=== PATIENT | female | born 1995 | race Caucasian/White ===

== ENCOUNTER 2020-09-25 14:41 | Emergency (ER) | payer OTHER, SELFPAY ==
--- NOTE | 2020-09-25 14:51 | ED.URI ---
HPI - URI/Sore Throat General Chief Complaint: Upper Respiratory Infection Stated Complaint: sore throat Time Seen by Provider: 09/25/20 14:52 Source: patient and RN notes reviewed Mode of arrival: ambulatory Limitations: no limitations History of Present Illness HPI Narrative: 25 year old female who presents to [facility] care with complaints of sore throat, nasal drainage and congestion, dry cough, and some sweats for the past 4 days. Patient states that she has had no fevers or any chills. Patient denies any body aches, acute fatigue, no loss of taste or smell or any nausea and vomiting or diarrhea. Patient does report that she recently had a colonoscopy for colitis and was Covid tested on the 2nd with negative results, no known exposure to anyone with COVID symptoms. Patient is a student at [employer] and has been home since June and is doing classes online. Patient has no tachypnea or any accessory muscle use with her respirations with color pink and skin warm and dry, SAO2 97% on room air, states quit tobacco use 2 weeks ago. MD elicited complaint: cough (dry), sore throat, rhinorrhea and other Pertinent past history: other (former tobacco use quit 2 weeks ago) Onset (ago): day(s) (4) Consistency: constant Exacerbating factors: swallowing Relieving factors: nothing Associated symptoms: rhinorrhea, sore throat and cough Treatments prior to arrival: other (Nyquil) Related Data Home Medications Medication Instructions Recorded Confirmed Zofran 09/25/20 acyclovir 09/25/20 fluoxetine 09/25/20 hydrocodone-acetaminophen 09/25/20 meclizine 09/25/20 Allergies Allergy/AdvReac Type Severity Reaction Status Date / Time ciprofloxacin Allergy Unknown Verified 09/25/20 15:02 Review of Systems Review of Systems: Narrative: CONSTITUTIONAL: Denies fever, chills, reports sweats. EYES: Denies visual changes, redness, or discharge. ENT: Positive rhinorrhea, congestion, sore throat, no otalgia. CARDIOVASCULAR: Denies chest pain, palpitations, or edema. RESPIRATORY: Dry cough denies dyspnea. GASTROINTESTINAL: Denies abdominal pain, nausea, vomiting, or diarrhea. GENITOURINARY: Denies dysuria or hematuria. SKIN: Denies rash or itching. MUSCULOSKELETAL: Denies back pain, joint pain, or myalgia. NEUROLOGIC: Denies headache, numbness, or weakness. PSYCHIATRIC: Positive history of anxiety or depression. All systems reviewed & are unremarkable except as noted in HPI and below PMFSH Past Medical History Medical History (Updated 09/25/20 @ 15:24 by Ema Pennington NP) Anxiety and depression Colitis Hand injury Vertigo Surgical History Surgical History (Updated 09/25/20 @ 15:26 by Ema Pennington NP) Hx of colonoscopy Family History Family History (Updated 09/25/20 @ 15:30 by Ema Pennington NP) Other No significant family history Social History Social History (Updated 09/25/20 @ 15:25 by Ema Pennington NP) Smoking status: Former smoker Tobacco type: cigarettes Second hand tobacco smoke exposure: No Smoking end date: 09/11/20 Alcohol intake: unknown Substance use: unknown Living arrangements: with family Occupation/Education: student Gender identity (if verbalized by the patient): Female Comments At time of signature, agree with nursing past medical, surgical, social and family history. There is no relevant family history pertinent to the presenting complaint Exam Narrative: Exam Narrative: GENERAL: Well-appearing, well-nourished, and in no acute distress. HEAD: Normocephalic, atraumatic. EYES: PERRLA and EOMI. ENT: Nares red with turbinates swollen, clear rhinorrhea no epistaxis. Mucous membranes moist.TM s normal with good light reflex, throat red with uvula swollen, no lesions or exudates noted, no tonsil enlargement, post nasal drainage noted. NECK: Supple. no lymphadenopathy CHEST: Clear to auscultation. No respiratory distress.SAO2 97% on room air HEART: Regular rate
[2020-09-25 14:58] VITALS: BP 98/66; PULSE 84; RESP 12; TEMP 37; O2SAT 97
[2020-09-25 15:05] VITALS: BP 98/66; PULSE 84; RESP 12; TEMP 37; O2SAT 97
== END 2020-09-25 15:23 | disposition home or self-care (01) ==
PROVIDERS: Emergency Provider Registered Nurse
DX: J06.9 Acute upper respiratory infection, unspecified (principal); J02.8 Acute pharyngitis due to other specified organisms; Z87.891 Personal history of nicotine dependence
CPT/HCPCS: 87081; 87880; 99203; G0463

== ENCOUNTER 2020-10-21 11:29 | Emergency (ER) | payer OTHER, SELFPAY ==
--- NOTE | ~2020-10-21 | CT_ITS ---
EXAMINATION: CT abdomen pelvis w con DATE: 10/21/2020 14:05 INDICATION: Left lower quadrant abdominal pain. TECHNIQUE: Computed tomography (CT) of the abdomen and pelvis was performed with 100 mL Omnipaque 350 intravenous contrast. Automated exposure control and iterative reconstruction technique were employe d. The dose-length product was 241.66 mGy-cm. COMPARISON: None. FINDINGS: The visualized portions of the lung bases demonstrate minimal atelectasis. No pleural effus ion. The heart size is normal. No pericardial effusion. There is periportal edema in the liver. The g allbladder, spleen, pancreas, adrenal glands, and kidneys are normal. There is an intrauterine device in expected position. There are no dilated loops of bowel. The appendix is normal. There are no path ologically enlarged lymph nodes. There is trace pelvic ascites. The bones are unremarkable. IMPRESSION: 1. No specific etiology for the patient's symptoms. Reviewed, dictated and finalized at location A. GE ENTRY CLERK
--- NOTE | ~2020-10-21 | US_ITS ---
EXAMINATION: US pelvic complete w TV DATE: 10/21/2020 13:22 INDICATION: Left lower quadrant abdominal pain. TECHNIQUE: Multiple transabdominal and transvaginal sonographic images of the pelvis were obtained. COMPARISON: None. FINDINGS: TRANSABDOMINAL ULTRASOUND: The uterus measures 7.8 x 5.1 x 3.3 cm. There is no free fluid in the pelvis. TRANSVAGINAL ULTRASOUND: The endometrial complex measures 7 mm in thickness. There is an intrauterine device in expected posit ion. The right ovary measures 2.4 x 1.8 x 2.0 cm. The left ovary measures 2.9 x 2.4 x 2.3 cm. There i s a 1.8 cm dominant follicle in left ovary. There is normal vascular flow in the ovaries. IMPRESSION: 1. Intrauterine device in expected position. Reviewed, dictated and finalized at location A. MODEL MAKER
[2020-10-21 11:30] VITALS: BP 104/68; PULSE 94; RESP 20; TEMP 36.3; O2SAT 100
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
[2020-10-21 12:02] LABS: Basophils Percent Auto 0.7 % (0.2-1.2); Eosinophils Absolute Auto 0.1 K/mm3 (0-0.3); Eosinophils Percent Auto 0.9 % (0-4.4); Hemoglobin 12.5 g/dL (12.0-15.0); Immature Granulocyte Absolute 0.02 K/mm3 (0.00-0.031); Immature Granulocyte Percent A 0.3 % (0-0.5); Lymphocytes Absolute Auto 2.09 K/mm3 (0.9-3.2); Lymphocytes Percent Auto 36.4 % (18.3-44.2); Mean Corpuscular HGB Conc 33.8 g/dl (32-36); Mean Corpuscular Hemoglobin 30.2 pg (26-34); Mean Corpuscular Volume 89.4 fl (80-100); Mean Platelet Volume 9.6 fl (7.4-10.4); Monocytes Absolute Auto 0.5 K/mm3 (0.1-0.6); Monocytes Percent Auto 8.7 % (2.6-8.5); Platelet Count Result 299 k/mm3 (150-375); Red Blood Count 4.14 M/mm3 (4.2-5.4); Red Cell Distribution Width 12.3 % (11.5-14.5); White Blood Count 5.7 K/mm3 (4.5-10.0)
[2020-10-21] MEDS: ONDANSETRON INJ 4 MG/2 ML VIAL IV PUSH (12:09)
[2020-10-21] MEDS: SODIUM CHLORIDE 0.9% IV 1,000 ML 999 ML IV CONT (12:09)
[2020-10-21 12:13] LABS: Alanine Aminotransferase 18 U/L (4-35); Albumin Level 4.2 g/dL (3.5-5.1); Alkaline Phosphatase 96 U/L (38-126); Anion Gap 6 mmol/L (8-16); Aspartate Amino Transferase 31 U/L (14-36); Bilirubin,Total 0.3 mg/dL (0.2-1.3); Blood Urea Nitrogen 14 mg/dL (7-17); Carbon Dioxide 27 mmol/L (22-30); Chloride 106 mmol/L (98-107); Estimated CRCL calculation 113 ml/min; Estimated Glomerular Filt Rate > 60; Glucose 88 mg/dL (65-105); Lipase 47 U/L (23-300); Potassium 3.8 mmol/L (3.4-5.0); Sodium 139 mmol/L (137-145)
[2020-10-21 12:24] LABS: Add Urine Microscopic? YES; Appearance Urine Clear (Clear); Bilirubin Urine Negative (Negative); Blood Urine Negative (Negative); Color Urine Yellow (Yellow); Glucose Urine UA Negative (Negative); Ketones Urine Negative (Negative); Leukocyte Esterase Ur Negative LEU/UL (Negative); Mucus Urine Rare /lpf; Nitrate Urine Negative (Negative); Protein Urine 1+ mg/dL (Negative); Squamous Epithelial Cell Urine Few /hpf (Few); Urobilinogen Urine Negative mg/dL (<2.0); WBC Urine 0-3 /hpf
[2020-10-21 12:45] LABS: Amphetamine Screen Urine Negative (Negative); Barbiturate Screen Urine Negative (Negative); Benzodiazepines Screen Urine Negative (Negative); Cannabinoid Screen Urine Positive (Negative); Cocaine Screen Urine Negative (Negative); Methadone Screen Urine Negative (Negative); Opiate Screen Urine Negative (Negative); Phencyclidine Screen Urine Negative (Negative)
[2020-10-21] MEDS: MORPHINE SULFATE (*CRX) 4 MG/ML INJ IV PUSH (13:18)
[2020-10-21 13:49] VITALS: BP 112/79; PULSE 83; O2SAT 98
--- NOTE | 2020-10-21 13:50 | PC.NURSE ---
Patient reporting pain in right rib cage. breathing 24 times per minute. Requesting to take her home anxiety medication. MD barrettd
[2020-10-21] MEDS: KETOROLAC 30 MG/ML VIAL (*BKC) IV PUSH (15:05)
[2020-10-21 15:12] VITALS: BP 118/78; PULSE 78; RESP 16; O2SAT 10
== END 2020-10-21 15:18 | disposition home or self-care (01) ==
PROVIDERS: Physician Assistant; Emergency Provider Emergency Medicine
DX: R10.2 Pelvic and perineal pain (principal); F41.9 Anxiety disorder, unspecified; F32.9 Major depressive disorder, single episode, unspecified; Z87.891 Personal history of nicotine dependence; Z97.5 Presence of (intrauterine) contraceptive device; Z79.899 Other long term (current) drug therapy
CPT/HCPCS: 36415; 74177; 76830; 76856; 80053; 80307; 81001; 81025; 83690; 85025; 87070; 87491; 87591; 87808; 96365; 96375; 99284; J0131; J1885; J2270; J2405; J7030; Q9967

== ENCOUNTER 2020-11-01 11:35 | Emergency (ER) | payer OTHER, SELFPAY ==
[2020-11-01 11:55] VITALS: PULSE 81; RESP 20; TEMP 36.6; O2SAT 100
[2020-11-01 12:01] LABS: Basophils Percent Auto 0.5 % (0.2-1.2); Eosinophils Absolute Auto 0.1 K/mm3 (0-0.3); Eosinophils Percent Auto 2.2 % (0-4.4); Hematocrit 39.8 % (37.0-47.0); Hemoglobin 13.4 g/dL (12.0-15.0); Immature Granulocyte Absolute 0.02 K/mm3 (0.00-0.031); Immature Granulocyte Percent A 0.4 % (0-0.5); Lymphocytes Absolute Auto 2.36 K/mm3 (0.9-3.2); Lymphocytes Percent Auto 42.5 % (18.3-44.2); Mean Corpuscular HGB Conc 33.7 g/dl (32-36); Mean Corpuscular Hemoglobin 30.2 pg (26-34); Mean Corpuscular Volume 89.8 fl (80-100); Mean Platelet Volume 9.3 fl (7.4-10.4); Monocytes Absolute Auto 0.5 K/mm3 (0.1-0.6); Monocytes Percent Auto 9.7 % (2.6-8.5); Neutrophils Absolute Auto 2.5 K/mm3 (1.3-6.7); Neutrophils Percent Auto 44.7 % (45.5-73.1); Platelet Count Result 342 k/mm3 (150-375); Red Blood Count 4.43 M/mm3 (4.2-5.4); Red Cell Distribution Width 12.5 % (11.5-14.5); White Blood Count 5.6 K/mm3 (4.5-10.0)
--- NOTE | 2020-11-01 12:05 | PC.NURSE ---
patient here with continuous N/V since this am. hx of GI workup. hx of IBS. only takes zofran PRN at home. see initial notes. labs drawn by chief ultrasound technologist. SL inserted. waiting for further orders from provider. resting on stretcher. call light in reach. on BP and O2 monitors.
[2020-11-01 12:06] LABS: Add Urine Microscopic? YES; Appearance Urine Clear (Clear); Bacteria Urine Trace /hpf; Bilirubin Urine Negative (Negative); Blood Urine Negative (Negative); Color Urine Yellow (Yellow); Glucose Urine UA Negative (Negative); Ketones Urine Negative (Negative); Leukocyte Esterase Ur Negative LEU/UL (Negative); Mucus Urine Rare /lpf; Nitrate Urine Negative (Negative); Protein Urine 1+ mg/dL (Negative); Squamous Epithelial Cell Urine Many /hpf (Few); Urobilinogen Urine Negative mg/dL (<2.0); WBC Urine 0-3 /hpf
[2020-11-01 12:12] LABS: Alanine Aminotransferase 15 U/L (4-35); Albumin Level 4.4 g/dL (3.5-5.1); Alkaline Phosphatase 106 U/L (38-126); Anion Gap 7 mmol/L (8-16); Aspartate Amino Transferase 23 U/L (14-36); Bilirubin,Total 0.3 mg/dL (0.2-1.3); Blood Urea Nitrogen 14 mg/dL (7-17); Calcium 8.4 mg/dL (8.4-10.2); Carbon Dioxide 29 mmol/L (22-30); Chloride 105 mmol/L (98-107); Estimated Glomerular Filt Rate > 60; Glucose 93 mg/dL (65-105); Lipase 51 U/L (23-300); Potassium 4.2 mmol/L (3.4-5.0); Sodium 141 mmol/L (137-145)
[2020-11-01] MEDS: ONDANSETRON INJ 4 MG/2 ML VIAL IV PUSH (12:40)
[2020-11-01] MEDS: SODIUM CHLORIDE 0.9% IV 1,000 ML 999 ML IV CONT (12:40)
--- NOTE | 2020-11-01 13:57 | PC.NURSE ---
patient states she is still nauseous but no further emesis. all labs resulted. IVF done. will discuss with provider.
--- NOTE | 2020-11-01 14:45 | PC.NURSE ---
meds given as ordered. resting on stretcher. patient states she is going to get a new GI physician in this area. no longer living out of [place] for school. states work up was negative a few months ago.
[2020-11-01] MEDS: MORPHINE SULFATE (*CRX) 2 MG/ML INJ IV PUSH (15:09)
[2020-11-01] MEDS: PROMETHAZINE HCL 25 MG/ML AMPUL 12.5 MG IV PUSH (15:09)
[2020-11-01 15:10] VITALS: BP 111/70; PULSE 80; RESP 18; O2SAT 100
--- NOTE | 2020-11-01 15:49 | ED.GENADULT ---
HPI - General Adult General Chief complaint: Abdominal Pain Stated complaint: n/v, abd crampming Time Seen by Provider: 11/01/20 11:41 History of Present Illness HPI narrative: Patient is a 25-year-old female who presents ER with nausea and vomiting. Sudden onset this morning upon waking up. Unknown quantity of emesis. No blood. No improvement with Zofran at home. Denies fevers or chills or sweats. Has had issues like this previously and now sees a GI physician at another hospital. She reports she has had a endoscopy and colonoscopy without significant findings. Denies any precipitating factors that could have caused her symptoms. Has not been drinking alcohol. Denies any sick contacts other than a cousin who is on amoxicillin for an unknown reason. Related Data Home Medications Medication Instructions Recorded Confirmed Zofran 09/25/20 acyclovir 09/25/20 fluoxetine 09/25/20 hydrocodone-acetaminophen 09/25/20 meclizine 09/25/20 Allergies Allergy/AdvReac Type Severity Reaction Status Date / Time ciprofloxacin Allergy Unknown Verified 09/25/20 15:02 dicyclomine Allergy Unknown Verified 10/21/20 11:33 Review of Systems Review of Systems: All systems reviewed & are unremarkable except as noted in HPI and below Constitutional: Constitutional: Denies chills, Denies fever(s) and Denies weakness ENT: Denies nasal congestion and Denies sore throat Cardiovascular: Cardiovascular: Denies chest pain, Denies rapid heart rate and Denies radiating jaw, neck or arm pain Respiratory: Respiratory: Denies cough and Denies dyspnea Gastrointestinal: Gastrointestinal: Reports abdominal pain, Denies diarrhea, Reports nausea and Reports vomiting [facility] Past Medical History Medical History (Updated 11/01/20 @ 15:52 by Nitin Davison MD) Anxiety and depression Colitis Hand injury Vertigo Surgical History Surgical History (Updated 09/25/20 @ 15:26 by Ema Pennington NP) Hx of colonoscopy Family History Family History (Updated 09/25/20 @ 15:30 by Ema Pennington NP) Other No significant family history Social History Social History (Updated 10/21/20 @ 14:58 by Destiny Chaves PA-C) Smoking status: Former smoker Tobacco type: cigarettes Second hand tobacco smoke exposure: No Smoking end date: 09/11/20 Alcohol intake: current Substance use: current Substance use type: marijuana Gender identity (if verbalized by the patient): Female Exam Narrative: Exam Narrative: GENERAL: Well-appearing, well-nourished, and in no acute distress. HEAD: Normocephalic, atraumatic. CHEST: Clear to auscultation. No respiratory distress. HEART: Regular rate and rhythm. Normal peripheral pulses. ABDOMEN: Soft, nontender, nondistended. EXTREMITIES: Normal range of motion. No edema. NEURO: Alert and oriented x3. PSYCH: Normal mood and affect. Course Course Emergency Course: Patient appears much more comfortable. No emesis. She has received antiemetics. Lab work quite unremarkable. Abdomen soft nontender. No indication for CT scan. Discharge home with follow-up with PCP. Vital Signs Vital signs: Vital Signs Temperature 97.9 F 11/01/20 11:55 Pulse Rate 81 11/01/20 11:55 Respiratory Rate 20 11/01/20 11:55 Pulse Oximetry 100 11/01/20 11:55 Temperature 97.9 F 11/01/20 11:55 Pulse Rate 80 11/01/20 15:10 Respiratory Rate 18 11/01/20 15:10 Blood Pressure 111/70 11/01/20 15:10 Pulse Oximetry 100 11/01/20 15:10 Medical Decision Making Vital Signs Vital Signs: Vital Signs Temperature 97.9 F 11/01/20 11:55 Pulse Rate 81 11/01/20 11:55 Respiratory Rate 20 11/01/20 11:55 Pulse Oximetry 100 11/01/20 11:55 Temperature 97.9 F 11/01/20 11:55 Pulse Rate 80 11/01/20 15:10 Respiratory Rate 18 11/01/20 15:10 Blood Pressure 111/70 11/01/20 15:10 Pulse Oximetry 100 11/01/20 15:10 Lab Data Result diagrams: 11/01/20 1
== END 2020-11-01 16:00 | disposition home or self-care (01) ==
PROVIDERS: Emergency Provider Emergency Medicine
DX: R11.2 Nausea with vomiting, unspecified (principal); F41.9 Anxiety disorder, unspecified; F32.9 Major depressive disorder, single episode, unspecified
CPT/HCPCS: 36415; 80053; 81001; 81025; 83690; 85025; 96361; 96374; 96375; 99284; J2270; J2405; J2550; J7030

== ENCOUNTER 2020-11-07 11:53 | Emergency (ER) | payer OTHER, SELFPAY ==
--- NOTE | 2020-11-07 11:56 | ED.URI ---
HPI - URI/Sore Throat General Chief Complaint: Upper Respiratory Infection Stated Complaint: LOSING VOICE Time Seen by Provider: 11/07/20 11:57 Source: patient and RN notes reviewed History of Present Illness HPI Narrative: Patient is a 25-year-old female who presents the urgent care with complaints of a sore that started last night. Patient states that she woke up this morning and now has a lump on the right side of her neck . Patient denies of any known exposure to strep or flu. Denies of any fever, chills, nausea, vomiting, cough. Denies of taking anything [id number] for her symptoms. No other acute complaints. No acute distress noted. Patient aware of the plan of care. Some parts of this dictation were generated by voice recognition software and may contain typographical and/or grammatical inaccuracies. Related Data Home Medications Medication Instructions Recorded Confirmed Zofran 09/25/20 acyclovir 09/25/20 fluoxetine 09/25/20 hydrocodone-acetaminophen 09/25/20 meclizine 09/25/20 Allergies Allergy/AdvReac Type Severity Reaction Status Date / Time ciprofloxacin Allergy Unknown Verified 09/25/20 15:02 dicyclomine Allergy Unknown Verified 10/21/20 11:33 Review of Systems Review of Systems: Narrative: CONSTITUTIONAL: Denies fever, chills, or sweats. EYES: Denies visual changes, redness, or discharge. ENT: Reports of sore throat and swelling gland CARDIOVASCULAR: Denies chest pain, palpitations, or edema. RESPIRATORY: Denies cough or dyspnea. GASTROINTESTINAL: Denies abdominal pain, nausea, vomiting, or diarrhea. GENITOURINARY: Denies dysuria or hematuria. SKIN: Denies rash or itching. MUSCULOSKELETAL: Denies back pain, joint pain, or myalgia. NEUROLOGIC: Denies headache, numbness, or weakness. All other systems reviewed are negative, except as documented in HPI. [facility] Past Medical History Medical History (Updated 11/07/20 @ 12:13 by IBETH Stevenson) Anxiety and depression Colitis Hand injury Vertigo Surgical History Surgical History (Updated 09/25/20 @ 15:26 by Ema Pennington NP) Hx of colonoscopy Family History Family History (Updated 09/25/20 @ 15:30 by Ema Pennington NP) Other No significant family history Social History Social History (Updated 10/21/20 @ 14:58 by Destiny Chaves PA-C) Smoking status: Former smoker Tobacco type: cigarettes Second hand tobacco smoke exposure: No Smoking end date: 09/11/20 Alcohol intake: current Substance use: current Substance use type: marijuana Gender identity (if verbalized by the patient): Female Comments At the time of my signature, I reviewed and agree with the nursing past medical, surgical, social, and family history. There is no relevant family history pertinent to the patient complaint. Exam Narrative: Exam Narrative: GENERAL: This is a well-nourished, well-developed patient, in no apparent distress. HEAD: normocephalic, atraumatic. EYES: PERRL. Sclera clear/white. Vision is grossly intact. EARS: External ears normal, auditory canals clear and without drainage, TMs normal without perforation. Hearing grossly intact. NOSE: External nose normal with no obvious nasal discharge, nares without redness, no rhinorrhea. THROAT: Mucous membranes moist, posterior pharynx clear. Mild postnasal drainage NECK: Neck supple, very mild nontender right submandibular lymphadenopathy CARDIOVASCULAR: Regular rate and rhythm without murmurs, gallops, or rubs. RESPIRATORY: Clear to auscultation. Breath sounds equal bilaterally. No wheezes, rales, or rhonchi. SKIN: warm, intact with no suspicious lesions or rash, good texture and turgor. NEURO: awake, alert, and oriented to person, place and time. There were no obvious focal neurologic abnormalities. EXTREMITIES: No clubbing, cyanosis, or edema. Course Vital Signs Vital signs: Vital Signs Temperature 98.2 F 11/07/20 12:10 Pulse Rate 92
[2020-11-07 12:10] VITALS: BP 104/51; PULSE 92; RESP 16; TEMP 36.8; O2SAT 100
== END 2020-11-07 12:19 | disposition home or self-care (01) ==
PROVIDERS: Emergency Provider Nurse Practitioner Family
DX: J02.9 Acute pharyngitis, unspecified (principal); F41.9 Anxiety disorder, unspecified; F32.9 Major depressive disorder, single episode, unspecified
CPT/HCPCS: 87081; 87880; 99213; G0463

== ENCOUNTER 2020-11-09 12:32 | Emergency (ER) | payer OTHER, SELFPAY ==
--- NOTE | 2020-11-09 12:34 | ED.URI ---
HPI - URI/Sore Throat General Chief Complaint: Upper Respiratory Infection Stated Complaint: SORE THROAT Time Seen by Provider: 11/09/20 12:46 Source: patient and RN notes reviewed Mode of arrival: ambulatory Limitations: no limitations History of Present Illness HPI Narrative: 25-year-old female presents with concern for 4 to 5-day history of postnasal drainage, rhinorrhea, cough, sore throat, reports she has lost her voice. Reports she had a negative strep test 2 days ago. Reports she has been taking DayQuil and NyQuil. Denies any known sick contacts. Denies body aches, chills, sweats, fever, shortness of breath, loss of sense of taste and smell. MD elicited complaint: sore throat Related Data Home Medications Medication Instructions Recorded Confirmed Zofran 4 mg PO PRN PRN 09/25/20 11/09/20 acyclovir 200 mg PO DAILY 09/25/20 11/09/20 fluoxetine 10 mg PO DAILY 09/25/20 11/09/20 meclizine 12 mg PO PRN PRN 09/25/20 11/09/20 Adult Probiotic 1 tab-cap PO BID 11/09/20 11/09/20 famotidine [Pepcid] 40 mg PO BID 11/09/20 11/09/20 Allergies Allergy/AdvReac Type Severity Reaction Status Date / Time ciprofloxacin Allergy Unknown Verified 11/09/20 12:44 dicyclomine Allergy Unknown Verified 11/09/20 12:44 Review of Systems Review of Systems: Narrative: CONSTITUTIONAL: Denies malaise, chills, sweats, or fever. EYES: Denies visual changes, redness, or discharge. ENT: Reports rhinorrhea, congestion, and sore throat. Denies sinus pain and ear pain CARDIOVASCULAR: Denies chest pain, palpitations, or edema. RESPIRATORY: Reports cough. Denies dyspnea. GASTROINTESTINAL: Denies abdominal pain, nausea, vomiting, diarrhea SKIN: Denies rash or itching. MUSCULOSKELETAL: Denies myalgia. NEUROLOGIC: Denies headache. All systems reviewed & are unremarkable except as noted in HPI and below PMFSH Past Medical History Medical History (Updated 11/09/20 @ 12:50 by Laila Sagastume NP) Anxiety and depression Colitis Hand injury Vertigo Surgical History Surgical History (Updated 09/25/20 @ 15:26 by Ema Pennington NP) Hx of colonoscopy Family History Family History (Updated 09/25/20 @ 15:30 by Ema Pennington NP) Other No significant family history Social History Social History (Updated 10/21/20 @ 14:58 by Destiny Chaves PA-C) Smoking status: Former smoker Tobacco type: cigarettes Second hand tobacco smoke exposure: No Smoking end date: 09/11/20 Alcohol intake: current Substance use: current Substance use type: marijuana Gender identity (if verbalized by the patient): Female Comments At time of signature, agree with nursing past medical, surgical, social and family history. There is no relevant family history pertinent to the presenting complaint Exam Narrative: Exam Narrative: GENERAL: Well-appearing, well-nourished, and in no acute distress. HEAD: Normocephalic EYES: PERRLA, conjunctivae clear ENT: Nares clear, turbinates erythematous, clear discharge. Mucous membranes moist. TM pearly mercedes with dull light reflex bilaterally; no tragal tenderness. Oropharynx erythematous without lesions. Tonsils not enlarged and without exudate, no drooling, slightly hoarse voice, no trismus, uvula midline. NECK: Supple. No lymphadenopathy CHEST: Clear to auscultation, breath sounds equal. No wheezing, rhonchi, rales, or stridor. No respiratory distress, speaks in full sentences. HEART: Regular rate and rhythm. No murmur heard. SKIN: Warm, dry, no rash. NEURO: Alert and oriented x3. PSYCH: Normal mood and affect Course Course Emergency Course: Patient is aware of diagnosis, understands and agrees to treatment plan. Anticipatory guidance given. Patient agrees to follow-up as directed and is aware of reasons to seek care at the emergency department. Portions of this record may have been created with voice recognition software Vital Signs Vital signs: Vital Signs Temperature 98.2 F 11/09/20 12:41 Pul
[2020-11-09 12:41] VITALS: BP 115/78; PULSE 82; RESP 16; TEMP 36.8; O2SAT 100
== END 2020-11-09 13:12 | disposition home or self-care (01) ==
PROVIDERS: Emergency Provider Nurse Practitioner
DX: J40 Bronchitis, not specified as acute or chronic (principal); Z20.822 Contact with and (suspected) exposure to COVID-19; Z87.891 Personal history of nicotine dependence; F41.9 Anxiety disorder, unspecified; F32.9 Major depressive disorder, single episode, unspecified
CPT/HCPCS: 87426; 99213; C9803; G0463

== ENCOUNTER 2021-01-25 10:27 | Emergency (ER) | payer OTHER, SELFPAY ==
--- NOTE | 2021-01-25 10:35 | ED.URI ---
HPI - URI/Sore Throat General Chief Complaint: Upper Respiratory Infection Stated Complaint: upper respiratory infection Time Seen by Provider: 01/25/21 10:40 Source: patient and RN notes reviewed Mode of arrival: ambulatory Limitations: no limitations History of Present Illness HPI Narrative: 25-year-old female presents with concern for nasal congestion, rhinorrhea, low-grade fever, one episode of vomiting, hot flashes, trouble sleeping, occasional cough. Reports symptoms started 3 days ago. She reports she has been taking Benadryl and Claritin with no relief. Denies trouble breathing, loss of sense of taste or smell, sore throat. 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 She has not been vaccinated for Covid. MD elicited complaint: cough Related Data Home Medications Medication Instructions Recorded Confirmed acyclovir 200 mg PO DAILY 09/25/20 11/09/20 fluoxetine 10 mg PO DAILY 09/25/20 11/09/20 meclizine 12 mg PO PRN PRN 09/25/20 11/09/20 Adult Probiotic 1 tab-cap PO BID 11/09/20 11/09/20 Allergies Allergy/AdvReac Type Severity Reaction Status Date / Time ciprofloxacin Allergy Unknown Verified 11/09/20 12:44 dicyclomine Allergy Unknown Verified 11/09/20 12:44 Review of Systems Review of Systems: Narrative: CONSTITUTIONAL: Denies malaise, chills. Reports sweats, fever. EYES: Denies visual changes, redness, or discharge. ENT: Reports rhinorrhea, congestion. Denies sinus pain, otalgia and sore throat. CARDIOVASCULAR: Denies chest pain, palpitations, or edema. RESPIRATORY: Reports cough. Denies dyspnea. GASTROINTESTINAL: Denies abdominal pain, diarrhea. Reports nausea mild SKIN: Denies rash or itching. MUSCULOSKELETAL: Denies myalgia. NEUROLOGIC: Denies headache. All systems reviewed & are unremarkable except as noted in HPI and below PMFSH Past Medical History Medical History (Updated 01/25/21 @ 10:55 by Laila Sagastume NP) Anxiety and depression Colitis Hand injury Vertigo Surgical History Surgical History (Updated 09/25/20 @ 15:26 by Ema Pennington NP) Hx of colonoscopy Family History Family History (Updated 09/25/20 @ 15:30 by Ema Pennington NP) Other No significant family history Social History Social History (Updated 10/21/20 @ 14:58 by Destiny Chaves PA-C) Smoking status: Former smoker Tobacco type: cigarettes Second hand tobacco smoke exposure: No Smoking end date: 09/11/20 Alcohol intake: current Substance use: current Substance use type: marijuana Gender identity (if verbalized by the patient): Female Comments At time of signature, agree with nursing past medical, surgical, social and family history. There is no relevant family history pertinent to the presenting complaint Exam Narrative: Exam Narrative: GENERAL: Well-appearing, well-nourished, and in no acute distress. HEAD: Normocephalic EYES: PERRLA, conjunctivae clear ENT: Nares clear, turbinates edematous and erythematous, clear discharge. Mucous membranes moist. TM pearly mercedes with sharp light reflex bilaterally; no tragal tenderness. Oropharynx not erythematous without lesions. Tonsils not enlarged and without exudate, no drooling, no hoarseness, no trismus, uvula midline. NECK: Supple. No lymphadenopathy CHEST: Clear to auscultation, breath sounds equal. No wheezing, rhonchi, rales, or stridor. No respiratory distress, speaks in full sentences. HEART: Regular rate and rhythm. No murmur heard. SKIN: Warm, dry, no rash. NEURO: Alert and oriented x3. PSYCH: Normal mood and affect Course Course Emergency Course: Patient is aware of diagnosis, understands and agrees to treatment plan. Anticipatory guidance given. Patient agrees to follow-up as directed and is aware of reasons to seek care at the emergency department. Portions of this record may have been created with voice recognition software Vital Signs Vital signs: Vital Signs Temperature 98.2 F 01/25/21 10:39 Pulse Rate 88 01/25/21 10
[2021-01-25 10:39] VITALS: BP 112/72; PULSE 88; RESP 16; TEMP 36.8; O2SAT 100
== END 2021-01-25 11:05 | disposition home or self-care (01) ==
PROVIDERS: Emergency Provider Nurse Practitioner
DX: U07.1 COVID-19 (principal); Z87.891 Personal history of nicotine dependence; F41.9 Anxiety disorder, unspecified; F32.9 Major depressive disorder, single episode, unspecified
CPT/HCPCS: 87426; 99213; C9803; G0463

== ENCOUNTER 2021-02-18 22:03 | Emergency (ER) | payer OTHER, SELFPAY ==
--- NOTE | ~2021-02-18 | CT_ITS ---
EXAMINATION: CT abdomen pelvis w con EXAM DATE: 02/19/2021 02:12 INDICATION: Right lower quadrant pain, Nausea. TECHNIQUE: Spiral CT of the abdomen and pelvis was performed following intravenous injection of 100 m L Omnipaque 350. Axial, coronal and sagittal images of the abdomen and pelvis were reviewed. The do se-length product (DLP) for this examination was 279.33 mGy-cm. The exposure was tailored according to patient size (auto mA exposure control), and iterative reconstruction (ASIR) was used as additiona l dose reduction technique. Comparison is made to prior examination from 10/21/2020. FINDINGS: The liver, spleen, adrenal glands and pancreas are unremarkable. Gallbladder is unremarkab le. No biliary obstruction. Portal and splenic veins are patent. Kidneys enhance symmetrically. T here is no hydronephrosis. There is IUD which appears to be centrally located within the endometriu m, expected position. Small amount of free pelvic fluid from recently ruptured right ovarian cyst. Se veral cystic regions in the left ovary, which measures up to 4.8 cm. The bladder is unremarkable. T here is no retroperitoneal or pelvic lymphadenopathy. The appendix is normal. The stomach and small bowel are unremarkable. There is expected amount of c olonic stool. No free intraperitoneal gas. The heart is normal in size. There are no pericardial or pleural effusions. The lung bases are unremarkable. Mild lumbar levoscoliosis. IMPRESSION: Evidence of recently ruptured right ovarian cyst. Left ovarian cystic lesion probably hem orrhagic cyst but endometrioma not excludable. Consider follow-up pelvic sonogram if symptoms persist . Reviewed, dictated and finalized at location A. IMPRESSION: Evidence of recently ruptured right ovarian cyst. Left ovarian cyst ic lesion probably hemorrhagic cyst but endometrioma not excludable. Consider f ollow-up pelvic sonogram if symptoms persist.
[2021-02-18 22:25] VITALS: BP 119/85; PULSE 85; RESP 17; TEMP 36.2; O2SAT 100
[2021-02-18 22:44] LABS: Basophils Percent Auto 0.5 % (0.2-1.2); Eosinophils Absolute Auto 0.1 K/mm3 (0-0.3); Eosinophils Percent Auto 1.1 % (0-4.4); Hematocrit 39.6 % (37.0-47.0); Hemoglobin 13.2 g/dL (12.0-15.0); Immature Granulocyte Absolute 0.02 K/mm3 (0.00-0.031); Immature Granulocyte Percent A 0.2 % (0-0.5); Lymphocytes Absolute Auto 2.43 K/mm3 (0.9-3.2); Lymphocytes Percent Auto 29.7 % (18.3-44.2); Mean Corpuscular HGB Conc 33.3 g/dl (32-36); Mean Corpuscular Hemoglobin 29.6 pg (26-34); Mean Corpuscular Volume 88.8 fl (80-100); Mean Platelet Volume 9.7 fl (7.4-10.4); Monocytes Absolute Auto 0.7 K/mm3 (0.1-0.6); Monocytes Percent Auto 7.9 % (2.6-8.5); Neutrophils Percent Auto 60.6 % (45.5-73.1); Platelet Count Result 292 k/mm3 (150-375); Red Blood Count 4.46 M/mm3 (4.2-5.4); Red Cell Distribution Width 12.2 % (11.5-14.5); White Blood Count 8.2 K/mm3 (4.5-10.0)
[2021-02-18 22:45] LABS: Alanine Aminotransferase 15 U/L (4-35); Albumin Level 4.6 g/dL (3.5-5.1); Alkaline Phosphatase 109 U/L (38-126); Anion Gap 12 mmol/L (8-16); Aspartate Amino Transferase 27 U/L (14-36); Bilirubin,Total 0.2 mg/dL (0.2-1.3); Blood Urea Nitrogen 10 mg/dL (7-17); Calcium 9.5 mg/dL (8.4-10.2); Carbon Dioxide 26 mmol/L (22-30); Chloride 102 mmol/L (98-107); Estimated CRCL calculation 121 ml/min; Estimated Glomerular Filt Rate > 60; Glucose 99 mg/dL (65-105); Lipase 48 U/L (23-300); Potassium 3.6 mmol/L (3.4-5.0); Sodium 140 mmol/L (137-145)
[2021-02-18 22:46] LABS: Add Urine Microscopic? NO; Appearance Urine Clear (Clear); Bilirubin Urine Negative (Negative); Blood Urine Negative (Negative); Color Urine Straw (Yellow); Glucose Urine UA Negative (Negative); Ketones Urine Negative (Negative); Leukocyte Esterase Ur Negative LEU/UL (Negative); Nitrate Urine Negative (Negative); Protein Urine Negative (Negative); Specific Grav Ur 1.012 (1.001-1.035); Urobilinogen Urine Negative mg/dL (<2.0)
--- NOTE | 2021-02-19 00:53 | PC.NURSE ---
Pt to ED 10 c/o lower pelvic pain that is cramping in nature but feels different than when pt had ovarian cysts rupture. pt currently has mirena IUD in place x 5 years. LMP 2 weeks ago per pt. Also c/o thick, white vaginal discharge. denies abnormal vaginal bleeding. denies foul odor. denies itching. Denies all urinary symptoms. reports PAIN is worse when moviing around and constant since earlier today. Reports unprotected sexual intercourse and possible STD exposure.
[2021-02-19] MEDS: ONDANSETRON INJ 4 MG/2 ML VIAL IV PUSH (01:30)
[2021-02-19 02:40] VITALS: BP 114/77; PULSE 82; RESP 16; TEMP 36.6; O2SAT 98
--- NOTE | 2021-02-19 03:15 | ED.ABDPAIN ---
HPI - Abdominal Pain General Chief Complaint: Abdominal Pain Stated Complaint: abd pain, TRIMBLE Time Seen by Provider: 02/18/21 23:42 Source: patient Mode of arrival: ambulatory Limitations: no limitations History of Present Illness HPI narrative: 25-year-old with history of anxiety, depression, colitis here with complaints of left and right lower abdominal pain started approximately 1 day ago. But patient states that pain is constant in the left lower abdomen. She denies any fever or chills has nausea but no significant vomiting. Denies any urinary symptoms. Has clear vaginal discharge. MD elicited complaint: abdominal pain Pertinent past history: other (Ovarian cyst) Onset (ago): day(s) (1) Pain Consistency: constant Location: RLQ and LLQ Severity: moderate Quality: aching Radiation: none Migration to: no migration Related Data Home Medications Medication Instructions Recorded Confirmed acyclovir 200 mg PO DAILY 09/25/20 11/09/20 fluoxetine 10 mg PO DAILY 09/25/20 11/09/20 meclizine 12 mg PO PRN PRN 09/25/20 11/09/20 Adult Probiotic 1 tab-cap PO BID 11/09/20 11/09/20 Allergies Allergy/AdvReac Type Severity Reaction Status Date / Time ciprofloxacin Allergy Unknown Verified 11/09/20 12:44 dicyclomine Allergy Unknown Verified 11/09/20 12:44 Review of Systems Review of Systems: All systems reviewed & are unremarkable except as noted in HPI and below Constitutional: Constitutional: Reports no additional constitutional complaints Eyes: Eyes: Reports no additional eye complaints ENT: Reports system reviewed and no additional complaints, except as documented Cardiovascular: Cardiovascular: Reports no additional cardiovascular complaints Respiratory: Respiratory: Reports no additional respiratory complaints Gastrointestinal: Gastrointestinal: Reports as per HPI Genitourinary: Genitourinary: Reports as per HPI Musculoskeletal: Musculoskeletal: Reports no additional musculoskeletal complaints [facility] Past Medical History Medical History Anxiety and depression Colitis Hand injury Vertigo Surgical History Surgical History Hx of colonoscopy Family History Family History Other No significant family history Social History Social History Smoking status: Former smoker Tobacco type: cigarettes Second hand tobacco smoke exposure: No Smoking end date: 09/11/20 Alcohol intake: current Substance use: current Substance use type: marijuana Gender identity (if verbalized by the patient): Female Exam Narrative: Exam Narrative: GENERAL: Well-appearing, well-nourished, and in no acute distress. HEAD: Normocephalic, atraumatic. EYES: PERRLA and EOMI. NECK: Supple. CHEST: Clear to auscultation. No respiratory distress. HEART: Regular rate and rhythm. No murmur heard. Normal peripheral pulses. ABDOMEN: Soft, mild tenderness in the left lower abdomen, nondistended, normal active bowel sounds. EXTREMITIES: Normal range of motion. No edema. SKIN: Warm, dry, no rash. NEURO: No focal deficits. Alert and oriented x3. PSYCH: Normal mood and affect. Course Course Emergency Course: Patient comfortably resting on the bed had to wake her up several times to tell about the reports. I informed her about her lab work, CT findings. Advised to take Tylenol ibuprofen for pain, follow-up with her OB doctor. Vital Signs Vital signs: Vital Signs Temperature 36.2 C L 02/18/21 22:25 Pulse Rate 85 02/18/21 22:25 Respiratory Rate 17 02/18/21 22:25 Blood Pressure 119/85 02/18/21 22:25 Pulse Oximetry 100 02/18/21 22:25 Temperature 36.6 C 02/19/21 02:40 Pulse Rate 82 02/19/21 02:40 Respiratory Rate 16 02/19/21 02:40 Blood Pressure 114/77 02/19/21 02:40 Pulse Oximetry 98
[2021-02-19 03:20] VITALS: BP 112/74; PULSE 76; RESP 16; TEMP 36.8; O2SAT 100
== END 2021-02-19 03:21 | disposition home or self-care (01) ==
PROVIDERS: Emergency Provider Family Medicine
DX: F41.9 Anxiety disorder, unspecified (principal); F32.9 Major depressive disorder, single episode, unspecified; Z87.891 Personal history of nicotine dependence; N83.202 Unspecified ovarian cyst, left side
CPT/HCPCS: 36415; 74177; 80053; 81003; 81025; 83690; 85025; 96374; 99284; J2405; Q9967

== ENCOUNTER 2021-03-07 13:08 | Emergency (ER) | payer OTHER, SELFPAY ==
--- NOTE | 2021-03-07 13:11 | ED.URI ---
HPI - URI/Sore Throat General Chief Complaint: Upper Respiratory Infection Stated Complaint: sore throat/losing voice Time Seen by Provider: 03/07/21 13:22 Source: patient and RN notes reviewed Mode of arrival: ambulatory Limitations: no limitations History of Present Illness HPI Narrative: 25-year-old female presents concern for sore throat that started Thursday. Reports symptoms are worse in the morning and improves slightly throughout the day. Reports taking NyQuil at night with some relief. She reports occasional cough without shortness of breath. Denies nasal congestion, rhinorrhea, postnasal drainage, ear pain, headache, nausea, vomiting, loss of sense of taste or smell. Reports she had Covid in January and symptoms from that resolved. Denies any known sick contacts. MD elicited complaint: sore throat Related Data Home Medications Medication Instructions Recorded Confirmed acyclovir 200 mg PO DAILY 09/25/20 03/07/21 fluoxetine mg 03/07/21 Allergies Allergy/AdvReac Type Severity Reaction Status Date / Time ciprofloxacin Allergy Unknown Verified 03/07/21 13:13 dicyclomine Allergy Unknown Verified 03/07/21 13:13 Review of Systems Review of Systems: Narrative: CONSTITUTIONAL: Denies malaise, chills, sweats, or fever. EYES: Denies visual changes, redness, or discharge. ENT: Denies rhinorrhea, congestion, sinus pain, otalgia. Reports sore throat. CARDIOVASCULAR: Denies chest pain, palpitations, or edema. RESPIRATORY: Reports cough. Denies dyspnea. GASTROINTESTINAL: Denies abdominal pain, nausea, vomiting, diarrhea SKIN: Denies rash or itching. MUSCULOSKELETAL: Denies myalgia. NEUROLOGIC: Denies headache. All systems reviewed & are unremarkable except as noted in HPI and below PMFSH Past Medical History Medical History Anxiety and depression Colitis Hand injury Vertigo Surgical History Surgical History Hx of colonoscopy Family History Family History Other No significant family history Social History Social History Smoking status: Former smoker Tobacco type: cigarettes Second hand tobacco smoke exposure: No Smoking end date: 09/11/20 Alcohol intake: current Substance use: current Substance use type: marijuana Gender identity (if verbalized by the patient): Female Comments At time of signature, agree with nursing past medical, surgical, social and family history. There is no relevant family history pertinent to the presenting complaint Exam Narrative: Exam Narrative: GENERAL: Well-appearing, well-nourished, and in no acute distress. HEAD: Normocephalic EYES: PERRLA, conjunctivae clear ENT: Nares clear, turbinates pink, no discharge. Mucous membranes moist. TM pearly mercedes with sharp light reflex bilaterally; no tragal tenderness. Oropharynx not erythematous without lesions. Tonsils not enlarged and without exudate, no drooling, no hoarseness, no trismus, uvula midline. NECK: Supple. No lymphadenopathy CHEST: Clear to auscultation, breath sounds equal. No wheezing, rhonchi, rales, or stridor. No respiratory distress, speaks in full sentences. HEART: Regular rate and rhythm. No murmur heard. SKIN: Warm, dry, no rash. NEURO: Alert and oriented x3. PSYCH: Normal mood and affect Course Course Emergency Course: Patient is aware of diagnosis, understands and agrees to treatment plan. Anticipatory guidance given. Patient agrees to follow-up as directed and is aware of reasons to seek care at the emergency department. Portions of this record may have been created with voice recognition software Vital Signs Vital signs: Vital Signs Temperature 97.6 F 03/07/21 13:12 Pulse Rate 75 03/07/21 13:12 Respiratory Rate 12 03/07/21 13:12 Blood Pressure 109/68 03/07/21 13:12 Pul
[2021-03-07 13:12] VITALS: BP 109/68; PULSE 75; RESP 12; TEMP 36.4; O2SAT 100
== END 2021-03-07 13:35 | disposition home or self-care (01) ==
PROVIDERS: Emergency Provider Nurse Practitioner
DX: J02.9 Acute pharyngitis, unspecified (principal); Z87.891 Personal history of nicotine dependence
CPT/HCPCS: 87081; 87880; 99213; G0463

== ENCOUNTER 2021-04-07 14:56 | Emergency (ER) | payer OTHER, SELFPAY ==
[2021-04-07 15:12] VITALS: BP 109/62; PULSE 112; RESP 18; TEMP 37.1; O2SAT 99
--- NOTE | 2021-04-07 15:18 | ED.GENADULT ---
HPI - General Adult General Chief complaint: Unspecified Stated complaint: [place],Abdominal Pain,Light headed Time Seen by Provider: 04/07/21 15:18 Source: patient Mode of arrival: ambulatory Limitations: no limitations History of Present Illness HPI narrative: Jay Caceres is a 25 yo female with PMH of colitis and irritable bowel, [facility] of abdominal pain, dizziness and inability to sleep. He has been seen 3 times in the emergency room previously for similar complaints of difficulty sleeping, anxiety and also irritable bowel/colitis Related Data Home Medications Medication Instructions Recorded Confirmed fluoxetine 20 mg PO DAILY 03/07/21 04/07/21 Allergies Allergy/AdvReac Type Severity Reaction Status Date / Time ciprofloxacin Allergy Mild Hives Verified 04/07/21 15:12 dicyclomine Allergy Mild Unknown Verified 04/07/21 15:12 Review of Systems Review of Systems: Narrative: CONSTITUTIONAL: Denies fever, chills, sweats. EYES: Denies visual changes, redness, discharge. ENT: Denies rhinorrhea, congestion, sore throat, otalgia. CARDIOVASCULAR: Denies chest pain, palpitations, edema. RESPIRATORY: Denies dyspnea, wheezing, cough GASTROINTESTINAL: Has abdominal pain, nausea, vomiting, diarrhea. GENITOURINARY: Denies dysuria, hematuria, abnormal discharge SKIN: Denies rash or itching. NEUROLOGIC: Denies numbness, or focal weakness. Patient is shaking, states she feels anxious PSYCHIATRIC: Denies anxiety or depression. Patient states has been unable to sleep for the last couple of days although she has not taken any Benadryl or other otc drug PMFSH Past Medical History Medical History Anxiety and depression Colitis Hand injury Vertigo Surgical History Surgical History Hx of colonoscopy Family History Family History Other No significant family history Social History Social History Smoking status: Former smoker Tobacco type: cigarettes Second hand tobacco smoke exposure: No Smoking end date: 09/11/20 Alcohol intake: current Substance use: current Substance use type: marijuana Gender identity (if verbalized by the patient): Female Comments At time of signature, I agree with nursing past medical, surgical, social and family history. There is no relevant family history pertinent to the presenting complaint. Exam Narrative: Exam Narrative: GENERAL: This is a well-nourished, well-developed patient, in moderate distress. HEAD: normocephalic, atraumatic. EYES: Sclera clear/white. Vision is grossly intact. EARS: External ears normal,. Hearing grossly intact. NOSE: External nose normal without nasal discharge, nares without redness, no rhinorrhea. THROAT: Mucous membranes moist, NECK: Neck supple, CARDIOVASCULAR: Regular rate and rhythm without murmurs, gallops, or rubs. RESPIRATORY: Clear to auscultation. Breath sounds equal bilaterally. No wheezes, rales, or rhonchi. GASTROINTESTINAL: Abdomen soft, c/o diffuse pain SKIN: warm, intact with no suspicious lesions or rash, good texture and turgor. NEURO: awake, alert, and oriented to person, place and time. There were no obvious focal neurologic abnormalities. Steady gait EXTREMITIES: Normal range of motion. BACK: Nontender without deformity Course Course Emergency Course: Patient is here with abdominal pain shakiness inability to sleep who comes to [facility] evaluation We are unable to do any blood work here will address her symptoms-after discussion she is to call her physician who prescribes her antidepressants for recommendation of follow-up. She refused going to the ER because of the potential wait there Vital Signs Vital signs: Vital Signs Temperature 98.7 F 04/07/21 15:
== END 2021-04-07 15:37 | disposition left against medical advice (07) ==
PROVIDERS: Emergency Provider Nurse Practitioner
DX: F51.01 Primary insomnia (principal); R10.84 Generalized abdominal pain; Z87.891 Personal history of nicotine dependence; F41.9 Anxiety disorder, unspecified
CPT/HCPCS: 99211; 99213; G0463

== ENCOUNTER 2021-06-16 10:12 | Emergency (ER) | payer OTHER, SELFPAY ==
[2021-06-16 10:20] VITALS: BP 109/76; PULSE 95; RESP 16; TEMP 36.4; O2SAT 99
--- NOTE | 2021-06-16 10:48 | ED.URI ---
HPI - URI/Sore Throat General Chief Complaint: Upper Respiratory Infection Stated Complaint: Sore Throat Time Seen by Provider: 06/16/21 10:30 Source: patient, RN notes reviewed and old records reviewed Mode of arrival: ambulatory Limitations: no limitations History of Present Illness HPI Narrative: 26 year old female who [facility] with complaints of sore throat for the past 3 days with cough and runny nose. Patient states that her friend has had similar symptoms. patient denies any known fevers, chills or sweats, denies any body aches or any ear pain or any extreme fatigue. Patient denies any shortness of breath or any wheezing, no tachypnea or any labored respirations with SAO2 99% on room air. Patient has not had COVID vaccinations. MD elicited complaint: sore throat Related Data Allergies Allergy/AdvReac Type Severity Reaction Status Date / Time ciprofloxacin Allergy Mild Hives Verified 06/16/21 10:19 dicyclomine Allergy Mild Unknown Verified 06/16/21 10:19 Review of Systems Review of Systems: CONSTITUTIONAL: Denies fever, chills, or sweats. EYES: Denies visual changes, redness, or discharge. ENT: Denies rhinorrhea, congestion, positive for sore throat, no otalgia. CARDIOVASCULAR: Denies chest pain, palpitations, or edema. RESPIRATORY: Positive for cough deniesdyspnea. GASTROINTESTINAL: Denies abdominal pain, nausea, vomiting, or diarrhea. GENITOURINARY: Denies dysuria or hematuria. SKIN: Denies rash or itching. MUSCULOSKELETAL: Denies back pain, joint pain, or myalgia. NEUROLOGIC: Denies headache, numbness, or weakness. PSYCHIATRIC: Positive for history of anxiety or depression. All systems reviewed & are unremarkable except as noted in HPI and below [facility] Past Medical History Medical History (Updated 06/19/21 @ 11:52 by Ema Pennington NP) Anxiety and depression Colitis Hand injury Ruptured ovarian cyst Vertigo Surgical History Surgical History Hx of colonoscopy Family History Family History Other No significant family history Social History Social History Smoking status: Former smoker Tobacco type: cigarettes Second hand tobacco smoke exposure: No Smoking end date: 09/11/20 Alcohol intake: current Substance use: current Substance use type: marijuana Gender identity (if verbalized by the patient): Female Comments At time of signature, agree with nursing past medical, surgical, social and family history. There is no relevant family history pertinent to the presenting complaint Exam Narrative: GENERAL: Well-appearing, well-nourished, and in no acute distress. HEAD: Normocephalic, atraumatic. EYES: PERRLA and EOMI. ENT: Nares clear, clear rhinorrhea no epistaxis. Mucous membranes moist.TM's normal with good light reflex, throat red with tonsils red and swollen white exudates on tonsils noted, some post nasal drainage noted. NECK: Supple.lymphadenopathy CHEST: Clear to auscultation. No respiratory distress.SAO2 99% on room air,dry cough noted. HEART: Regular rate and rhythm. No murmur heard. Normal peripheral pulses. ABDOMEN: Soft, nontender, nondistended, normal active bowel sounds. EXTREMITIES: Normal range of motion. No edema. SKIN: Warm, dry, no rash. NEURO: No focal deficits. Alert and oriented x3. Course Vital Signs Vital signs: Vital Signs Temperature 36.4 C 06/16/21 10:20 Pulse Rate 95 06/16/21 10:20 Respiratory Rate 16 06/16/21 10:20 Blood Pressure 109/76 06/16/21 10:20 Pulse Oximetry 99 06/16/21 10:20 Temperature 36.4 C 06/16/21 10:20 Pulse Rate 95 06/16/21 10:20 Respiratory Rate 16 06/16/21 10:20 Blood Pressure 109/76 06/16/21 10:20 Pulse Oximetry 99 06/16/21 10:20 MDM - URI/Sore Throat Differential Diagnosis Differential diagnosis: Likely upper resp
== END 2021-06-16 11:09 | disposition home or self-care (01) ==
PROVIDERS: Emergency Provider Registered Nurse
DX: J06.9 Acute upper respiratory infection, unspecified (principal); J03.90 Acute tonsillitis, unspecified; Z87.891 Personal history of nicotine dependence
CPT/HCPCS: 87081; 87880; 99213; G0463

== ENCOUNTER 2021-06-27 10:53 | Emergency (ER) | payer OTHER, SELFPAY ==
[2021-06-27 10:58] VITALS: BP 110/62; PULSE 126; RESP 16; TEMP 37; O2SAT 100
--- NOTE | 2021-06-27 11:09 | ED.GENADULT ---
HPI - General Adult General Chief complaint: Ear Stated complaint: losing voice Time Seen by Provider: 06/27/21 11:08 Source: patient and RN notes reviewed Mode of arrival: ambulatory Limitations: no limitations History of Present Illness HPI narrative: 26-year-old female presents concern for sore throat, hoarse voice, fever, general malaise. She reports several of her roommates are ill and she has several family members who are positive for Covid. She reports she was seen last week at another [facility] for sore throat was given amoxicillin which she took for 2 days and then was told to stop taking it because her strep throat culture was negative. Reports she stopped taking it and her symptoms improved. Reports because she started feeling ill again on Thursday she took another dose of amoxicillin today. Reports she is also been taking Sudafed. Reports a fever of 102 today. complaint: Fever Related Data Allergies Allergy/AdvReac Type Severity Reaction Status Date / Time ciprofloxacin Allergy Mild Hives Verified 06/27/21 10:58 dicyclomine Allergy Mild Unknown Verified 06/27/21 10:58 Review of Systems Review of Systems: CONSTITUTIONAL: Reports malaise, chills, fever. EYES: Denies visual changes, redness, or discharge. ENT: Reports rhinorrhea, congestion, sore throat, hoarse voice, otalgia CARDIOVASCULAR: Denies chest pain, palpitations, or edema. RESPIRATORY: Reports cough. Denies dyspnea. GASTROINTESTINAL: Denies abdominal pain, vomiting, diarrhea. Reports nausea SKIN: Denies rash or itching. MUSCULOSKELETAL: Reports myalgia. NEUROLOGIC: Reports headache. All systems reviewed & are unremarkable except as noted in HPI and below PMFSH Past Medical History Medical History (Updated 06/27/21 @ 11:32 by Laila Sagastume NP) Anxiety and depression Colitis Hand injury Ruptured ovarian cyst Vertigo Surgical History Surgical History Hx of colonoscopy Family History Family History Other No significant family history Social History Social History Smoking status: Former smoker Tobacco type: cigarettes Second hand tobacco smoke exposure: No Smoking end date: 09/11/20 Alcohol intake: current Substance use: current Substance use type: marijuana Gender identity (if verbalized by the patient): Female Comments At time of signature, agree with nursing past medical, surgical, social and family history. There is no relevant family history pertinent to the presenting complaint Exam Narrative: GENERAL: Nontoxic-appearing, well-nourished, and in no acute distress. HEAD: Normocephalic EYES: PERRLA, conjunctivae clear ENT: Nares clear, clear discharge. Mucous membranes moist. TM pearly mercedes with dull light reflex bilaterally; no tragal tenderness. Oropharynx mildly erythematous without lesions. Tonsils not enlarged and without exudate, no drooling, no hoarseness, no trismus, uvula midline, no peritonsillar abscess noted. NECK: Supple. No lymphadenopathy CHEST: Clear to auscultation, breath sounds equal. No wheezing, rhonchi, rales, or stridor. No respiratory distress, speaks in full sentences. HEART: Regular rate and rhythm. No murmur heard. SKIN: Warm, dry, no rash. NEURO: Alert and oriented x3. PSYCH: Normal mood and affect Course Course Emergency Course: Patient is aware of diagnosis, understands and agrees to treatment plan. Anticipatory guidance given. Patient agrees to follow-up as directed and is aware of reasons to seek care at the emergency department. Portions of this record may have been created with voice recognition software Vital Signs Vital signs: Vital Signs Temperature 98.6 F 06/27/21 10:58 Pulse Rate 126 H 06/27/21 10:58 Respiratory Rate 16 06/27/21 10:58 Blood Pressure 110/62 06/27/21 10:58 Pulse Oximetry
[2021-06-28 17:47] LABS: SARS-CoV-2 RNA PCR Negative
== END 2021-06-27 11:40 | disposition home or self-care (01) ==
PROVIDERS: Emergency Provider Nurse Practitioner
DX: B34.9 Viral infection, unspecified (principal); Z20.822 Contact with and (suspected) exposure to COVID-19; Z87.891 Personal history of nicotine dependence
CPT/HCPCS: 87426; 99213; C9803; G0463; U0003; U0005